=== PATIENT | female | born 1945 | race Caucasian/White ===

== ENCOUNTER 2019-03-01 02:53 | Outpatient (CLI) | payer MEDICARE, OTHER, SELFPAY | END 2019-03-01 03:13 | PROVIDERS: Visit Provider Orthopaedic Surgery | DX: S92.919A Unspecified fracture of unspecified toe(s), initial encounter for closed fracture (principal); Z01.810 Encounter for preprocedural cardiovascular examination | CPT/HCPCS: 93005; 93010 ==